=== PATIENT | female | born 1975 | race Caucasian/White ===

== ENCOUNTER 2018-11-23 16:32 | Outpatient (CLI) | payer MEDICAID ==
[2018-11-23 20:43] LABS: CANDIDA GROUP DNA NEGATIVE (NEGATIVE); CANDIDA KRUSEI DNA NEGATIVE (NEGATIVE); TRICHOMONAS VAGINALIS DNA NEGATIVE (NEGATIVE)
== END 2018-11-23 23:59 | disposition home or self-care (01) ==
LOC: LAB.R 16:32
PROVIDERS: ATTEND Obstetrics & Gynecology
DX: N76.0 Acute vaginitis (principal)
CPT/HCPCS: 87661; 87801

== ENCOUNTER 2018-11-27 15:39 | Outpatient (CLI) | payer MEDICAID ==
--- NOTE | 2018-11-29 00:56 | Ultrasound Report ---
Reason: MENORRHAGIA Procedure Date: 11/27/2018 Accession Number: [id number] / [id number] Procedure: US - Pelvic w/Transvaginal CPT Code: FULL RESULT: EXAM: PELVIC ULTRASOUND EXAM DATE: 11/27/2018 05:11 PM. CLINICAL HISTORY: Menorrhagia. COMPARISON: None. TECHNIQUE: Realtime transabdominal pelvic scan performed to identify the uterus and adnexa and as an overview of other pelvic structures, followed by transvaginal scan to provide greater detail of the uterus and adnexa, with static image documentation. FINDINGS: Uterus: 14.8 x 8 x 8.8 cm, volume 545 cc. Retroverted and retroflexed position. Heterogeneous myometrium with multiple uterine fibroids. Masses: Self [employer]ist uterine fibroids include the followin. 2.6 x 2.6 x 3.3 cm posterior fundal intramural hypoechoic mass. 2. 1.4 x 1.1 x 1.5 cm fundal intramural hypoechoic mass. 3. 2.2 x 1.4 x 2.1 cm left fundal intramural hypoechoic mass. 4. 2.9 x 2.9 x 3.5 cm uterine body intramural hypoechoic mass. Endometrium: 7 mm. Largely obscured by the multiple uterine fibroids. No abnormal flow, mass or polyp. Cervix: Multiple nabothian cysts. No mass. Right Ovary: 2.5 x 1.6 x 3 cm, volume 6.3 cc. Normal echotexture and blood flow. Uterine follicles measuring less than 2 cm is noted. Left Ovary: 3.9 x 3.2 x 2.7 cm, volume 17.4 cc. Normal echotexture and blood flow. 2.4 x 1.7 x 1.4 Cm complex left ovarian cyst with debris and mild peripheral flow. No mural nodules or thickened septations. Free Fluid: None. Other: None. IMPRESSION: 1. Multiple uterine fibroids. 2. Complex left ovarian cyst most compatible with a corpus luteum. Otherwise, both ovaries and adnexa are normal. 3. Endometrium not well seen but measures up to 7 mm. No focal mass or polyp. RADIA
== END 2018-11-27 15:40 | disposition home or self-care (01) ==
LOC: DI 15:39
PROVIDERS: ATTEND Obstetrics & Gynecology
DX: D25.1 Intramural leiomyoma of uterus (principal); N83.292 Other ovarian cyst, left side
CPT/HCPCS: 76830; 76856

== ENCOUNTER 2018-11-27 15:41 | Outpatient (CLI) | payer MEDICAID ==
--- NOTE | 2018-11-30 09:15 | Mammography Report ---
Reason: SCREENING MAMMO Procedure Date: 11/27/2018 Accession Number: [id number] / [id number] Procedure: DIONTE - Screening Mammo w/Dustin CPT Code: FULL RESULT: EXAM: Screening Mammo w/Dustin DATE: 11/27/2018 4:19 PM CLINICAL HISTORY: Screening encounter. Family history of breast cancer in the mother at the age of 51. TECHNIQUE: (B) - Bilateral CC, laterally exaggerated CC, MLO views were obtained. COMPARISON: Baseline exam. PARENCHYMAL PATTERN: (D) - The breast(s) demonstrate(s) heterogeneously dense fibroglandular parenchyma. FINDINGS: There are no suspicious masses, calcifications, or areas of distortion. IMPRESSION: Negative examination. BI-RADS category 1. RECOMMENDATION: (ANNUAL) - Recommend routine annual screening mammography. BI-RADS CATEGORY: (1) - Negative. STANDARD QUALIFYING STATEMENTS: 1. This examination was not reviewed with the aid of Computer-Aided Detection (CAD). 2. A negative or benign imaging report should not preclude biopsy if clinically suspicious findings are present. 3. Dense breasts may obscure an underlying neoplasm. 4. This examination was reviewed with the aid of 3D breast imaging (tomosynthesis).
== END 2018-11-27 15:42 | disposition home or self-care (01) ==
LOC: DI 15:41
PROVIDERS: ATTEND Obstetrics & Gynecology
DX: Z12.31 Encounter for screening mammogram for malignant neoplasm of breast (principal); Z80.3 Family history of malignant neoplasm of breast
CPT/HCPCS: 77063; 77067

== ENCOUNTER 2019-06-02 14:10 | Emergency (ER) | payer MEDICAID ==
[2019-06-02 14:25] VITALS: BP 142/97
--- NOTE | 2019-06-02 14:43 | ED Physician Documentation ---
PD HPI FOCAL NEURO - Stated complaint Stated Complaint: L SIDE FACE NUMBNESS - Chief complaint Chief Complaint: Neuro - History obtained from History obtained from: Patient, Family - History of Present Illness Timing - onset: Today Timing - duration: Days (1) Timing - details: Other (Patient states she woke up like this) Severity of deficit: Moderate Weakness: Face, Left. No: Arm, Hand, Leg, Foot, Right Numbness: Face, Arm (L arm numbness for several months. no change), Left. No: Hand, Leg, Foot, Right Associated symptoms: No: Headache, Nausea / vomiting, Seizure, Syncope, Fall, Head injury, Chest pain, Neck pain, Back pain, Fever Contributing factors: negative: Anticoagulated Baseline status: positive: A&OX3, ambulatory, indep Similar symptoms before: Has not had sx before Recently seen: Not recently seen - Additional information Additional information: altered taste sensation today as well. Review of Systems Constitutional: denies: Fever, Chills GI: denies: Vomiting, Diarrhea Skin: denies: Rash PD PAST MEDICAL HISTORY - Past Medical History Past Medical History: No - Past Surgical History Past Surgical History: No - Present Medications Home Medications: Ambulatory Orders Medication Instructions Recorded Confirmed Valacyclovir HCl [Valacyclovir] 1,000 mg PO TID #21 tablet 06/02/19 predniSONE [Prednisone] 60 mg PO DAILY #21 tablet 06/02/19 - Allergies Allergies/Adverse Reactions: Allergies Allergy/AdvReac Type Severity Reaction Status Date / Time Sulfa (Sulfonamide Allergy Unknown Verified 06/02/19 14:25 Antibiotics) - Living Situation Living Situation: reports: With family Living Arrangement: reports: At home - Social History Does the pt smoke?: Yes Does the pt drink ETOH?: Yes Does the pt have substance abuse?: No PD ED PE NORMAL - Vitals Vital signs reviewed: Yes - General General: Alert and oriented X 3, No acute distress - HEENT HEENT: Atraumatic, PERRL, EOMI, Ears normal, Moist mucous membranes, Pharynx benign, Other (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 Flattening of the nasolabial fold. Forehead is involved. Asymmetric smile on the left. Otherwise normal neurological exam) - Neck Neck: Supple, no meningeal sign - Cardiac Cardiac: RRR - Respiratory Respiratory: Clear bilaterally - Abdomen Abdomen: Soft, Non tender, Non distended - Derm Derm: Warm and dry - Extremities Extremities: No deformity - Neuro Neuro: Alert and oriented X 3, Other (Normal sensation and motor examination is other than mild decrease sensation on the left arm which is chronic) - Psych Psych: Normal mood, Normal affect NIHSS - Time Time: 14:40 - Level of Consciousness Level of consciousness: (0) Alert, Keenly responsive LOC Questions: (0) Answers both Q's correct LOC Commands: (0) Performs both correctly - Gaze Best Gaze: (0) Normal - Visual Visual: (0) No loss - Facial Palsy Facial Palsy: (1) Minor paralysis - Motor Arms (both separate) Motor Arm (right): (0) No drift Motor Arm (left): (0) No drift - Motor Legs (both separate) Motor Leg (right): (0) No drift Motor Leg (left): (0) No drift - Limb Ataxia Limb Ataxia: (0) Absent - Sensory Sensory: (0) Normal - Best Language Best Language: (0) No aphasia - Dysarthria Dysarthria: (0) Normal - Extinction and Inattention (formally neg Extinction and inattention: (0) No abnormality - Total Score/Results Total Score/Result: 1 Results - Vitals Vitals: Vital Signs - 24 hr 06/02/19 14:20 Temperature 36.8 C Heart Rate 73 Respiratory 16 Rate Blood Pressure 142/97 H O2 Saturation 98 Oxygen O2 Source Room air PD MEDICAL DECISION MAKING - ED course Complexity details: considered differential, d/w patient, d/w family ED course: 44-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 No evidence of stroke. Findings are exclusive to the left side of the face and to the forehead is involved. Will place on prednisone and valacyclovir. She is well-appearing, nontoxic. Afebrile. No other focal neurological deficits. Patient counseled regarding signs and symptoms for which I believe and urgent re-evaluation would be necessary. Patient with good understanding of and agreement to plan and is comfortable going home at this time This document was made in part using voice recognition software. While efforts are made to proofread this document, sound alike and grammatical errors may occur. Departure - Departure Disposition: 01 Home, Self Care Clinical Impression: Guzman's palsy Condition: Good Instructions: ED [place] Palsy Follow-Up: Radha Porter ARNP [Primary Care Provider] - Within 1 week Prescriptions: predniSONE [Prednisone] 60 mg PO DAILY #21 tablet Valacyclovir HCl [Valacyclovir] 1,000 mg PO TID #21 tablet Comments: Use the medications as prescribed. You should also use artificial tears throughout the day to help keep the left eye lubricated. If it is feeling dry, you may need to tape the eyelid shut. Follow-up with your doctor in 1 week for repeat evaluation.
== END 2019-06-02 14:54 | disposition home or self-care (01) ==
LOC: ED 14:10
DX: G51.0 Bell's palsy (principal); F17.200 Nicotine dependence, unspecified, uncomplicated
CPT/HCPCS: 99282; 99284